=== PATIENT | female | born 1980 | race Caucasian/White ===

== ENCOUNTER 2018-10-11 13:18 | Inpatient (IN) | payer OTHER ==
[2018-10-11 15:34] VITALS: BMI 38.2
--- NOTE | 2018-10-11 15:58 | HP ---
CIWA Score - Admission Criteria [facility]ASAS Guidelines: Admission for Medically Managed Detox: Requires at least one of the followin. CIWA greater than 12 2. Seizures within the past 24 hours 3. Delirium tremens within the past 24 hours 4. Hallucinations within the past 24 hours 5. Acute intervention needed for co occurring medical disorder 6. Acute intervention needed for co occurring psychiatric disorder 7. Severe withdrawal that cannot be handled at a lower level of care (continued vomiting, continued diarrhea, abnormal vital signs) requiring intravenous medication and/or fluids 8. Admission ROS S - HPI Chief Complaint: rehab for K2 and crack. Was sent here for a [facility] program. Last rehab in 05/2018 at for same. 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 38 yo with h/o DM, obese Crack cocaine- uses occ, 7 days ago last use, was using $10/day, started age 25. K2- uses 4 blunts since age 17, last use this morning, blackouts from K2 Alcohol- occ Schizophrenic, bipolar with depression- suicide attempt- age 22, pt cuts herself Meds: Janumet:50/500 BID Glipizide- haldol Cogentin- depakote parozacin DUR/ISTOP- shows testosterone IM injections- on menses Urine- pos for BZO- pt denies use Allergies/Adverse Reactions: Allergies Allergy/AdvReac Type Severity Reaction Status Date / Time No Known Allergies Allergy Verified 10/11/18 15:50 Exam Limitations: No Limitations - Ebola screening Have you traveled outside of the country in the last 21 days: No Have you had contact with anyone from an Ebola affected area: No Have you been sick,other than usual withdrawal symptoms: No Do you have a fever: No - Review of Systems Constitutional: No Symptoms Reported EENT: reports: No Symptoms Reported Respiratory: reports: No Symptoms reported GI: reports: No Symptoms Reported : reports: No Symptoms Reported Musculoskeletal: reports: No Symptoms Reported Integumentary: reports: No Symptoms Reported Neuro: reports: No Symptoms reported Endocrine: reports: No Symptoms Reported Hematology: reports: No Symptoms Reported Psychiatric: reports: No Sypmtoms Reported Other Systems: Reviewed and Negative Patient History - Patient Medical History Hx Anemia: No Hx Asthma: No Hx Chronic Obstructive Pulmonary Disease (COPD): No Hx Cancer: No Hx Cardiac Disorders: No Hx Congestive Heart Failure: No Hx Hypertension: No Hx Hypercholesterolemia: No Hx Pacemaker: No HX Cerebrovascular Accident: No Hx Seizures: No Hx Diabetes: No Hx Gastrointestinal Disorders: No Hx Liver Disease: No Hx Genitourinary Disorders: No Hx Sexually Transmitted Disorders: No Hx Renal Disease (ESRD): No - Patient Surgical History Hx Orthopedic Surgery: Yes (ankle surgery) Hx Hysterectomy: No - PPD History Documented Results: Negative w/o proof - Reproductive History Patient is a Female of Child Bearing Age (11 -55 yrs old): No (on testosterone) Patient : No - Smoking Cessation Smoking history: Current every day smoker Have you smoked in the past 12 months: Yes Aproximately how many cigarettes per day: 6 Hx Chewing Tobacco Use: Yes Initiated information on smoking cessation: Yes 'Breaking Loose' booklet given: 10/11/18 - Substances Abused k2 Route: Smoking Frequency: Daily Amount used: 4 blunts Age of first use: 17 Date of Last Use: 10/11/18 Crack Route: Inhalation Frequency: 1-2 times per week Amount used: $10 Alcohol Frequency: 1-2 times per week Family Disease History - Family Disease History Family Disease History: Other: Father (lives [place]), Mother (lives in [place]) Admission Physical Exam BHS - Vital Signs Vital Signs: Vital Signs - 24 hr 10/11/18 15:30 Temperature 98.5 F Pulse Rate 110 H Respiratory 20 Rate Blood Pressure 118/85 - Physical General Appearance: Yes: Within Normal Limits HEENTM: Yes: Within Normal Limits Respiratory: Yes: Within Normal Limits Neck: Yes: Within Normal Limits Breast: Yes: Breast Exam Deferred Cardiology: Yes: Within Normal Limits Abdominal: Yes: Within Normal Limits Genitourinary: Yes: Within Normal Limits Back: Yes: Within Normal Limits Musculoskeletal: Yes: Within Normal Limits Extremities: Yes: Within Normal Limits Neurological: Yes: Within Normal Limits Integumentary: Yes: Within Normal Limits Lymphatic: Yes: Within Normal Limits BHS Breath Alcohol Content Breath Alcohol Content: 0 Urine Pregancy Test - Result Urine Test Results: Negative- NO Line Present Urine Drug Screen - Results Drug Screen Negative: No Urine Drug Screen Results: BZO-Benzodiazepines Inpatient Rehab Admission - Initial Determination Are CD services needed?: Yes Free of communicable disease: Yes Not in need of hospitalization: Yes - Rehab Admission Criteria Previous failed treatment: Yes Poor recovery environment: Yes Comorbidities: Yes Lacks judgement: No Patient is meeting Inpatient Rehab admission criteria:: Yes (pt was sent here from [facility]- K2/crack use)
[2018-10-11] MEDS ORDERED: LOPERAMIDE HCL 2 MG CAPSULE PO PRN (16:19)
[2018-10-11] MEDS ORDERED: IBUPROFEN 400 MG TABLET (FP) PO PRN (16:19)
[2018-10-11] MEDS ORDERED: guaiFENesin/D-METHORPHAN HB 10 ML UNIT-DOSE CUPS PO PRN (16:19)
[2018-10-11] MEDS ORDERED: MAGNESIUM HYDROX 2400MG/30ML ORAL SUSPENSION 30 ML CUP PO PRN (16:19)
[2018-10-11] MEDS ORDERED: MENTHOL/PHENOL 1 EACH UD MM PRN (16:19)
[2018-10-11] MEDS ORDERED: MAGNESIUM CITRATE 300 ML BOTTLE PO PRN (16:19)
[2018-10-11] MEDS ORDERED: ACETAMINOPHEN 325 MG TABLET (FP) PO PRN (16:19)
[2018-10-11] MEDS ORDERED: MAG HYDROX/AL HYDROX/SIMETH 30 ML UNIT-DOSE CUP PO PRN (16:19)
[2018-10-11] MEDS ORDERED: P-EPHED 60MG/TRIPROLIDI 2.5MG TABLET PO PRN (16:19)
[2018-10-11] MEDS ORDERED: TUBERCULIN PPD 5 TU/0.1ML VIAL ID ONE (18:59)
[2018-10-11] MEDS: DOCUSATE SODIUM 100 MG CAPSULE (FP) PO SCH (21:45)
[2018-10-11] MEDS: THIAMINE HCL 100 MG TABLET (FP) PO SCH (21:45)
[2018-10-11] MEDS: BENZTROPINE MESYLATE 1 MG TABLET (FP) PO SCH (21:45)
[2018-10-11] MEDS: PRAZOSIN HCL 1 MG CAPSULE PO SCH (21:47)
[2018-10-11] MEDS: HALOPERIDOL 5 MG TABLET (FP) PO SCH (21:47)
[2018-10-11] MEDS ORDERED: PRAZOSIN HCL 1 MG CAPSULE PO SCH (22:00)
[2018-10-11] MEDS ORDERED: MELATONIN 5 MG TABLETS PO PRN (22:00)
[2018-10-12] MEDS ORDERED: PT OWN MED DRAWER 7, Y5N ONE ×2 (00:50→05:55)
[2018-10-12 03:31] LABS: URINE APPEARANCE CLOUDY; URINE BILIRUBIN NEGATIVE (<2.0 mg/dL); URINE COLOR DKYELLOW; URINE GLUCOSE (UA) 3+ (NEGATIVE); URINE KETONE TRACE (NEGATIVE); URINE LEUK ESTERASE 2+ (NEGATIVE); URINE NITRITE NEGATIVE (NEGATIVE); URINE PROTEIN 2+ (NEGATIVE)
[2018-10-12 03:37] LABS: EPI CELLS MODERATE /HPF (FEW); URINE HYALINE CAST 32 /lpf; URINE MUCUS MANY
[2018-10-12] MEDS: metFORMIN HCL 500 MG TABLET (FP) PO SCH ×2 (06:46→17:11)
[2018-10-12] MEDS: glipiZIDE-XL 5 MG TAB.ER.24 PO SCH (06:47)
[2018-10-12] MEDS: NICOTINE POLACRILEX 4 MG GUM BC PRN ×2 (06:55→15:39)
[2018-10-12] MEDS: INSULIN SLIDING SCALE (NOVOLOG) 1 VIAL SQ SCH ×3 (07:58→17:12)
[2018-10-12] MEDS: PRENATAL VITAMINS W/ FOLIC ACID TABLET (FP) PO SCH (09:52)
[2018-10-12] MEDS: HALOPERIDOL 5 MG TABLET (FP) PO SCH ×2 (09:53→21:28)
[2018-10-12] MEDS: DOCUSATE SODIUM 100 MG CAPSULE (FP) PO SCH ×2 (09:53→21:27)
--- NOTE | 2018-10-12 11:51 | EKG ---
Test Reason : Blood Pressure : / mmHG Vent. Rate : 100 BPM Atrial Rate : 100 BPM P-R Int : 122 ms QRS Dur : 072 ms QT Int : 324 ms P-R-T Axes : 064 016 018 degrees QTc Int : 417 ms NORMAL SINUS RHYTHM LOW VOLTAGE QRS BORDERLINE ECG NO PREVIOUS ECGS AVAILABLE Confirmed by RAJIV VITAL, JANAK ([id number]) on 10/12/2018 11:50:41 AM Referred By: Confirmed By:JANAK VANCE MD
[2018-10-12 12:30] LABS: HEMATOCRIT 37.4 % (32.4-45.2); HEMOGLOBIN 12.8 GM/dL (10.7-15.3); MCH 29.6 pg (25.7-33.7); MCHC 34.2 g/dl (32.0-36.0); MEAN CELL VOLUME 86.7 fl (80-96); MEAN PLT VOLUME 9.2 fl (7.5-11.1); PLATELET COUNT 280 K/MM3 (134-434); RBC 4.31 M/mm3 (3.60-5.2); RDW 16.8 % (11.6-15.6)
[2018-10-12 12:51] LABS: ALBUMIN 3.5 g/dl (3.4-5.0); ALK PHOS 63 U/L (45-117); ANION GAP 6 MMOL/L (8-16); BILIRUBIN,TOTAL 0.2 mg/dL (0.2-1); BLOOD UREA NITROGEN 10 mg/dL (7-18); CALCIUM 8.8 mg/dL (8.5-10.1); CHLORIDE 107 mmol/L (98-107); CO2 26 mmol/L (21-32); CREATININE 0.7 mg/dL (0.55-1.3); GLUCOSE,RANDOM 146 mg/dL (74-106); POTASSIUM 4.7 mmol/L (3.5-5.1); SGOT/AST 6 U/L (15-37); SGPT/ALT 17 U/L (13-61); SODIUM 139 mmol/L (136-145); TOT PROT 7.1 g/dl (6.4-8.2)
--- NOTE | 2018-10-12 15:55 | PN ---
S Progress Note Note: NOTIFIED BY RN THAT PATIENT IS FEELING RESTLESS AND ANXIOUS. WILL NOT ORDER VISTARIL DUE TO POTENTIAL INTERACTION WITH HALDOL IN PROLONGING QTC. WILL ORDER ONE TIME DOSE OF CLONIDINE 0.1 MG. Vital Signs Temperature 97.7 F 10/12/18 06:59 Pulse Rate 94 H 10/12/18 09:39 Respiratory Rate 18 10/12/18 06:59 Blood Pressure 148/94 10/12/18 09:39 O2 Sat by Pulse Oximetry (%)
--- NOTE | 2018-10-12 16:06 | CONSULT ---
[facility] Psychiatric Consult - Data Date of interview: 10/12/18 Admission source: [facility] Identifying data: This is the first admission to [facility] for this 38 yo single childless female,resides in Supportive [place] residence,supportive by [facility]. Substance Abuse History: Reports k2 since 17 yo,4 blunts daily,crack since 8 yo, alcohol 1-2 times a week. Medical History: Obesity,NIIDM. 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 Physical/Sexual Abuse/Trauma History: Not willing to discuss. Mental Status Exam - Mental Status Exam Alert and Oriented to: Time, Place, Person Cognitive Function: Grossly Intact Patient Appearance: Unkempt Mood: Sad, Anxious Affect: Mood Congruent, Labile Patient Behavior: Cooperative Speech Pattern: Clear Voice Loudness: Normal Thought Process: Goal Oriented Thought Disorder: Being Controlled Hallucinations: Denies Suicidal Ideation: Denies Homicidal Ideation: Denies Insight/Judgement: Fair Sleep: Fair Appetite: Fair Muscle strength/Tone: Normal Gait/Station: Normal Psychiatric Findings - Problem List ([employer] 1, 2,3) (1) Cocaine use disorder Current Visit: Yes Status: Chronic (2) Diabetes Current Visit: Yes Status: Chronic (3) Hallucinogen use Current Visit: Yes Status: Chronic (4) Schizophrenia Current Visit: Yes Status: Chronic (5) Cannabis dependence Current Visit: Yes Status: Chronic - Initial Treatment Plan Initial Treatment Plan: Continue current medications as per plan.Will monitor progress.
[2018-10-12] MEDS ORDERED: cloNIDine HCL 0.1 MG TABLET PO ONE (17:15)
[2018-10-12] MEDS: THIAMINE HCL 100 MG TABLET (FP) PO SCH (21:27)
[2018-10-12] MEDS: BENZTROPINE MESYLATE 1 MG TABLET (FP) PO SCH (21:27)
[2018-10-12] MEDS: PRAZOSIN HCL 1 MG CAPSULE PO SCH (21:28)
[2018-10-12] MEDS: DIVALPROEX SODIUM 500 MG TABLET E.C. PO SCH (21:29)
[2018-10-13] MEDS: metFORMIN HCL 500 MG TABLET (FP) PO SCH ×2 (07:24→16:43)
[2018-10-13] MEDS: INSULIN SLIDING SCALE (NOVOLOG) 1 VIAL SQ SCH ×3 (07:25→16:44)
[2018-10-13] MEDS: glipiZIDE-XL 5 MG TAB.ER.24 PO SCH (07:25)
[2018-10-13] MEDS ORDERED: PT OWN MED DRAWER 7, Y5N ONE ×2 (07:26→16:43)
[2018-10-13] MEDS: HALOPERIDOL 5 MG TABLET (FP) PO SCH ×2 (09:15→21:26)
[2018-10-13] MEDS: DOCUSATE SODIUM 100 MG CAPSULE (FP) PO SCH ×2 (09:15→21:27)
[2018-10-13] MEDS: DIVALPROEX SODIUM 500 MG TABLET E.C. PO SCH ×2 (09:15→21:27)
[2018-10-13] MEDS: PRENATAL VITAMINS W/ FOLIC ACID TABLET (FP) PO SCH (09:15)
[2018-10-13] MEDS: NICOTINE POLACRILEX 4 MG GUM BC PRN (18:38)
--- NOTE | 2018-10-13 19:04 | PN ---
Psychiatric Progress Note Vital Signs: Vital Signs Period Temp Pulse Resp BP Sys/Figueroa Pulse Ox Last 24 Hr 97.9 F 80-89 16-18 107-124/73-82 Date of Session: 10/13/18 Chief Complaint:: " I was feeling anxious earlier ". HPI: Called by nurse, during daytime, to evaluate this patient for complaint of anxiety. Ms Martinez was admitted to [facility] on 10/12/18. This is a direct admission from [facility]. ROS: Patient is ambulatory, alert and fully oriented. Offers no specific complaints of anxiety. Does not appear to be in any distress at time of this examination. Current Medications: Active Medications Generic Name Dose Route Start Last Admin Trade Name Freq PRN Reason Stop Dose Admin Acetaminophen 650 mg 10/11/18 16:19 Tylenol - PO Q4H PRN FEVER Al Hydroxide/Mg Hydroxide 30 ml 10/11/18 16:19 Mylanta Oral Suspension - PO Q6H PRN DYSPEPSIA Benztropine Mesylate 1 mg 10/11/18 22:00 10/12/18 21:27 Cogentin - PO 1 mg HS BRITTANIE Administration Divalproex Sodium 500 mg 10/12/18 22:00 10/13/18 09:15 Depakote - PO 500 mg BID BRITTANIE Administration Docusate Sodium 100 mg 10/11/18 22:00 10/13/18 09:15 Colace - PO 100 mg BID BRITTANIE Administration Eucalyptus/Menthol/Phenol/Sorbitol 1 each 10/11/18 16:19 Cepastat Lozenge - MM Q4H PRN SORE THROAT Glipizide 5 mg 10/12/18 07:00 10/13/18 07:25 Glucotrol Xl - PO 5 mg ACBK BRITTANIE Administration Guaifenesin 10 ml 10/11/18 16:19 Robitussin Dm - PO Q6H PRN COUGH Haloperidol 10 mg 10/12/18 10:00 10/13/18 09:15 Haldol - PO 10 mg DAILY BRITTANIE Administration Haloperidol 20 mg 10/11/18 22:00 10/12/18 21:28 Haldol - PO 20 mg HS BRITTANIE Administration Ibuprofen 400 mg 10/11/18 16:19 Motrin - PO Q6H PRN Pain level 4-6 Insulin Aspart 1 vial 10/12/18 07:00 10/13/18 16:44 Novolog Vial Sliding Scale - SQ Not Given TIDAC [facility] Protocol Loperamide HCl 4 mg 10/11/18 16:19 Imodium - PO Q6H PRN DIARRHEA Magnesium Citrate 300 ml 10/11/18 16:19 Citroma - PO Q48H PRN CONSTIPATION Magnesium Hydroxide 30 ml 10/11/18 16:19 Milk Of Magnesia - PO DAILY PRN CONSTIPATION Melatonin 5 mg 10/11/18 22:00 Melatonin PO HS PRN INSOMNIA Metformin HCl 1,000 mg 10/12/18 07:00 10/13/18 16:43 Glucophage - PO 1,000 mg BID@0700,1630 BRITTANIE Administration Nicotine Polacrilex 4 mg 10/11/18 16:19 10/13/18 18:38 Nicorette Gum - BC 4 mg Q2H PRN Administration NICOTINE REPLACEMENT RX Prazosin HCl 2 mg 10/11/18 22:00 10/12/18 21:28 Minipress - PO 2 mg HS BRITTANIE Administration Multivit/Folic Acid/Iron 1 tab 10/12/18 10:00 10/13/18 09:15 Vitamins (Sjr) - PO 1 tab DAILY BRITTANIE Administration Pseudoephedrine/Triprolidine 1 combo 10/11/18 16:19 Actifed - PO TID PRN NASAL CONGESTION Thiamine HCl 100 mg 10/11/18 22:00 10/12/18 21:27 Vitamin B1 - PO 100 mg HS BRITTANIE Administration Medication(s) Change(s): Medications are reviewed. Noted current regimen consisting of haloperidol 30 mg/day + cogentin + depakote. Concordant with pharmacy claims of 10/08/18 at [facility]. Added to the regimen : hydroxyzine 25 mg po q 6 hrs prn. Side effects/benefits of this regimen are discussed with the patient. Ms Martinez is made aware of the risk of EPS ( extrapyramidal symptoms), dystonias, dyskinesias, akathisia, neuroleptic malignant syndrome, cardiovascular adverse events, anticholinergic manifestations (blurred vision, constipation, urinary hesitancy) ; liver dysfunction, blood dyscrasias from use of depakote were also mentioned to patient. Ms Martinez endorses a history of good tolerability + good response to this regimen in the past. No report of adverse effects. Patient has verbalized her agreement with this plan of care. Consent (verbal) granted to . Current Side Effect: No Lab tests ordered: No Lab tests reviewed: Yes (valproic acid level = 31.5 on 10/13/17 ; unremarkable LFTS. CBC is normal.) Provider note:: Chart reviewed. Dr Mcghee's consult note (10/13/18) : read and appreciated. Patient is interviewed. She indicates that she was doing fine until she started experiencing some feelings of jitterines (no longer endorsed in this session) during daytime. Patient is reassured. Hydroxyzine discussed. Patient responded positively to teaching. Unit psychiatrist will follow hospital course. Unremarkable mental status. Total face to face time:: 25 Mental Status Exam - Mental Status Exam Alert and Oriented to: Time, Place, Person Cognitive Function: Good Patient Appearance: Well Groomed Mood: Apprehensive, Hopeful Affect: Appropriate, Normal Range Patient Behavior: Appropriate, Cooperative Speech Pattern: Clear, Appropriate Voice Loudness: Normal Thought Process: Goal Oriented Thought Disorder: Not Present Hallucinations: Denies Suicidal Ideation: Denies Homicidal Ideation: Denies Insight/Judgement: Fair Sleep: Fair Appetite: Good Gait/Station: Normal Psychiatric Treatment Plan - Problem List (1) Schizophrenia Current Visit: Yes Comment: . (2) Cannabis dependence Current Visit: Yes Comment: . (3) Cocaine use disorder Current Visit: Yes Comment: . (4) Substance induced mood disorder Current Visit: Yes Comment: .
[2018-10-13] MEDS ORDERED: hydrOXYzine PAMOATE 25 MG CAPSULE (FP) PO PRN (19:05)
[2018-10-13] MEDS: BENZTROPINE MESYLATE 1 MG TABLET (FP) PO SCH (21:27)
[2018-10-13] MEDS: hydrOXYzine PAMOATE 25 MG CAPSULE (FP) PO PRN (21:27)
[2018-10-13] MEDS: THIAMINE HCL 100 MG TABLET (FP) PO SCH (21:27)
[2018-10-13] MEDS: PRAZOSIN HCL 1 MG CAPSULE PO SCH (21:33)
[2018-10-14] MEDS ORDERED: PT OWN MED DRAWER 7, Y5N ONE ×2 (03:24→08:15)
[2018-10-14] MEDS: glipiZIDE-XL 5 MG TAB.ER.24 PO SCH (06:26)
[2018-10-14] MEDS: hydrOXYzine PAMOATE 25 MG CAPSULE (FP) PO PRN ×3 (06:26→21:11)
[2018-10-14] MEDS: metFORMIN HCL 500 MG TABLET (FP) PO SCH ×2 (06:26→16:48)
[2018-10-14] MEDS: INSULIN SLIDING SCALE (NOVOLOG) 1 VIAL SQ SCH ×3 (06:33→16:51)
[2018-10-14] MEDS: DOCUSATE SODIUM 100 MG CAPSULE (FP) PO SCH ×2 (09:41→21:11)
[2018-10-14] MEDS: HALOPERIDOL 5 MG TABLET (FP) PO SCH ×2 (09:41→21:10)
[2018-10-14] MEDS: DIVALPROEX SODIUM 500 MG TABLET E.C. PO SCH ×2 (09:41→21:10)
[2018-10-14] MEDS: PRENATAL VITAMINS W/ FOLIC ACID TABLET (FP) PO SCH (09:41)
[2018-10-14] MEDS: NICOTINE POLACRILEX 4 MG GUM BC PRN (17:32)
[2018-10-14] MEDS: BENZTROPINE MESYLATE 1 MG TABLET (FP) PO SCH (21:11)
[2018-10-14] MEDS: THIAMINE HCL 100 MG TABLET (FP) PO SCH (21:11)
[2018-10-14] MEDS: PRAZOSIN HCL 1 MG CAPSULE PO SCH (21:28)
[2018-10-15] MEDS ORDERED: hydrOXYzine PAMOATE 50 MG CAPSULE (FP) PO ONE (00:45)
[2018-10-15] MEDS ORDERED: PT OWN MED DRAWER 7, Y5N ONE (03:18)
[2018-10-15] MEDS: metFORMIN HCL 500 MG TABLET (FP) PO SCH ×2 (06:56→16:49)
[2018-10-15] MEDS: INSULIN SLIDING SCALE (NOVOLOG) 1 VIAL SQ SCH ×3 (06:56→16:52)
[2018-10-15] MEDS: glipiZIDE-XL 5 MG TAB.ER.24 PO SCH (06:56)
[2018-10-15] MEDS: hydrOXYzine PAMOATE 25 MG CAPSULE (FP) PO PRN ×2 (06:57→21:13)
[2018-10-15] MEDS: NICOTINE POLACRILEX 4 MG GUM BC PRN ×4 (06:58→19:00)
[2018-10-15] MEDS: DIVALPROEX SODIUM 500 MG TABLET E.C. PO SCH (09:44)
[2018-10-15] MEDS: PRENATAL VITAMINS W/ FOLIC ACID TABLET (FP) PO SCH (09:44)
[2018-10-15] MEDS: DOCUSATE SODIUM 100 MG CAPSULE (FP) PO SCH ×2 (09:44→21:12)
[2018-10-15] MEDS: HALOPERIDOL 5 MG TABLET (FP) PO SCH ×2 (09:45→22:05)
--- NOTE | 2018-10-15 11:47 | PN ---
Psychiatric Progress Note Vital Signs: Vital Signs Period Temp Pulse Resp BP Sys/Figueroa Pulse Ox Last 24 Hr 97.6 F-97.9 F 84-88 18-20 115-135/81-82 Date of Session: 10/15/18 Chief Complaint:: Thee depressed,my mood is mostly down. HPI: Patient addressed Cocaine,K2 ,Cannabis dependence comorbid with Schizophrenia. ROS: Obesity,DM. Current Medications: Active Medications Generic Name Dose Route Start Last Admin Trade Name Freq PRN Reason Stop Dose Admin Acetaminophen 650 mg 10/11/18 16:19 Tylenol - PO Q4H PRN FEVER Al Hydroxide/Mg Hydroxide 30 ml 10/11/18 16:19 Mylanta Oral Suspension - PO Q6H PRN DYSPEPSIA Benztropine Mesylate 1 mg 10/11/18 22:00 10/14/18 21:11 Cogentin - PO 1 mg HS BRITTANIE Administration Divalproex Sodium 750 mg 10/15/18 22:00 Depakote - PO HS BRITTANIE Divalproex Sodium 500 mg 10/16/18 07:00 Depakote - PO AM BRITTANIE Docusate Sodium 100 mg 10/11/18 22:00 10/15/18 09:44 Colace - PO 100 mg BID BRITTANIE Administration Duloxetine HCl 20 mg 10/15/18 11:45 Cymbalta - PO DAILY BRITTANIE Eucalyptus/Menthol/Phenol/Sorbitol 1 each 10/11/18 16:19 Cepastat Lozenge - MM Q4H PRN SORE THROAT Glipizide 5 mg 10/12/18 07:00 10/15/18 06:56 Glucotrol Xl - PO 5 mg ACBK BRITTANIE Administration Guaifenesin 10 ml 10/11/18 16:19 Robitussin Dm - PO Q6H PRN COUGH Haloperidol 10 mg 10/12/18 10:00 10/15/18 09:45 Haldol - PO 10 mg DAILY BRITTANIE Administration Haloperidol 20 mg 10/11/18 22:00 10/14/18 21:10 Haldol - PO 20 mg HS BRITTANIE Administration Hydroxyzine Pamoate 25 mg 10/13/18 19:42 10/15/18 06:57 Vistaril - PO 25 mg Q6H PRN Administration ANXIETY Ibuprofen 400 mg 10/11/18 16:19 Motrin - PO Q6H PRN Pain level 4-6 Insulin Aspart 1 vial 10/12/18 07:00 10/15/18 06:56 Novolog Vial Sliding Scale - SQ Not Given TIDAC [facility] Protocol Loperamide HCl 4 mg 10/11/18 16:19 Imodium - PO Q6H PRN DIARRHEA Magnesium Citrate 300 ml 10/11/18 16:19 Citroma - PO Q48H PRN CONSTIPATION Magnesium Hydroxide 30 ml 10/11/18 16:19 Milk Of Magnesia - PO DAILY PRN CONSTIPATION Melatonin 5 mg 10/11/18 22:00 Melatonin PO HS PRN INSOMNIA Metformin HCl 1,000 mg 10/12/18 07:00 10/15/18 06:56 Glucophage - PO 1,000 mg BID@0700,1630 BRITTANIE Administration Nicotine Polacrilex 4 mg 10/11/18 16:19 10/15/18 10:58 Nicorette Gum - BC 4 mg Q2H PRN Administration NICOTINE REPLACEMENT RX Prazosin HCl 2 mg 10/11/18 22:00 10/14/18 21:28 Minipress - PO 2 mg HS BRITTANIE Administration Multivit/Folic Acid/Iron 1 tab 10/12/18 10:00 10/15/18 09:44 Vitamins (Sjr) - PO 1 tab DAILY BRITTANIE Administration Pseudoephedrine/Triprolidine 1 combo 10/11/18 16:19 Actifed - PO TID PRN NASAL CONGESTION Thiamine HCl 100 mg 10/11/18 22:00 10/14/18 21:11 Vitamin B1 - PO 100 mg HS BRITTANIE Administration Current Side Effect: No Lab tests ordered: No Lab tests reviewed: Yes Provider note:: Chart was revuewed,patient was evaluated,medications has been discussed with the patient .Patient addressed ongoing depressed mood,anxiety, negative thinking.Reports that she was on Depakote 1000 mg po daily with good result.Properties of Depakote ,Cymbalta hurst been discussed with the patient including side effects,benefits and dose adjustement.Patient agrees to start Cymbalta 20 mg po daily.Depakote 500 mg po bid will be adjusted to 500 mg po am and 750 mg po hs. Supportive therapy provided. Mental Status Exam - Mental Status Exam Alert and Oriented to: Time, Place, Person Cognitive Function: Grossly Intact Patient Appearance: Well Groomed Mood: Depressed, Sad Affect: Labile Patient Behavior: Cooperative Speech Pattern: Clear Voice Loudness: Normal Thought Process: Goal Oriented Thought Disorder: Being Controlled Hallucinations: Denies Suicidal Ideation: Denies Homicidal Ideation: Denies Insight/Judgement: Fair Sleep: Fair Appetite: Good Muscle strength/Tone: Normal Gait/Station: Normal Psychiatric Treatment Plan - Problem List (1) Cocaine use disorder Current Visit: Yes (2) Diabetes Current Visit: Yes (3) Hallucinogen use Current Visit: Yes (4) Schizophrenia Current Visit: Yes (5) Cannabis dependence Current Visit: Yes
[2018-10-15] MEDS ORDERED: COLLOIDAL OATMEAL 1 BAR EACH TP PRN (12:14)
[2018-10-15] MEDS: DULoxetine HCL 20 MG CAPSULE.DR (FP) PO SCH (12:28)
[2018-10-15] MEDS: BENZTROPINE MESYLATE 1 MG TABLET (FP) PO SCH (21:12)
[2018-10-15] MEDS: THIAMINE HCL 100 MG TABLET (FP) PO SCH (21:12)
[2018-10-15] MEDS: PRAZOSIN HCL 1 MG CAPSULE PO SCH (21:13)
[2018-10-15] MEDS: DIVALPROEX 500 MG, DIVALPROEX 250 MG PO SCH (21:14)
[2018-10-15] MEDS ORDERED: DIVALPROEX SODIUM 500 MG TABLET E.C. ONE (21:14)
[2018-10-15] MEDS ORDERED: DIVALPROEX SODIUM 250 MG TABLET E.C. ONE (21:14)
[2018-10-15] MEDS ORDERED: DIVALPROEX SODIUM 250 MG TABLET E.C. PO SCH (22:00)
[2018-10-16] MEDS ORDERED: PT OWN MED DRAWER 7, Y5N ONE ×2 (05:53→10:21)
[2018-10-16] MEDS: metFORMIN HCL 500 MG TABLET (FP) PO SCH ×2 (06:20→16:47)
[2018-10-16] MEDS: glipiZIDE-XL 5 MG TAB.ER.24 PO SCH (06:20)
[2018-10-16] MEDS: DIVALPROEX SODIUM 500 MG TABLET E.C. PO SCH (06:20)
[2018-10-16] MEDS: hydrOXYzine PAMOATE 25 MG CAPSULE (FP) PO PRN ×3 (06:21→21:21)
[2018-10-16] MEDS: INSULIN SLIDING SCALE (NOVOLOG) 1 VIAL SQ SCH ×3 (06:27→16:49)
[2018-10-16] MEDS: DOCUSATE SODIUM 100 MG CAPSULE (FP) PO SCH ×2 (09:36→21:21)
[2018-10-16] MEDS: DULoxetine HCL 20 MG CAPSULE.DR (FP) PO SCH (09:36)
[2018-10-16] MEDS: PRENATAL VITAMINS W/ FOLIC ACID TABLET (FP) PO SCH (09:37)
[2018-10-16] MEDS: HALOPERIDOL 5 MG TABLET (FP) PO SCH ×2 (10:13→21:21)
[2018-10-16] MEDS: NICOTINE POLACRILEX 4 MG GUM BC PRN ×3 (12:55→19:36)
[2018-10-16] MEDS ORDERED: DIVALPROEX SODIUM 250 MG TABLET E.C. ONE (19:27)
[2018-10-16] MEDS ORDERED: DIVALPROEX SODIUM 500 MG TABLET E.C. ONE (19:27)
[2018-10-16] MEDS: DIVALPROEX 500 MG, DIVALPROEX 250 MG PO SCH (21:21)
[2018-10-16] MEDS: BENZTROPINE MESYLATE 1 MG TABLET (FP) PO SCH (21:21)
[2018-10-16] MEDS: THIAMINE HCL 100 MG TABLET (FP) PO SCH (21:21)
[2018-10-16] MEDS: PRAZOSIN HCL 1 MG CAPSULE PO SCH (21:22)
[2018-10-17] MEDS ORDERED: PT OWN MED DRAWER 7, Y5N ONE (03:29)
[2018-10-17] MEDS: glipiZIDE-XL 5 MG TAB.ER.24 PO SCH (06:53)
[2018-10-17] MEDS: metFORMIN HCL 500 MG TABLET (FP) PO SCH ×2 (06:53→16:44)
[2018-10-17] MEDS: hydrOXYzine PAMOATE 25 MG CAPSULE (FP) PO PRN ×3 (06:53→21:15)
[2018-10-17] MEDS: DIVALPROEX SODIUM 500 MG TABLET E.C. PO SCH (06:53)
[2018-10-17] MEDS: INSULIN SLIDING SCALE (NOVOLOG) 1 VIAL SQ SCH ×2 (06:54→16:45)
[2018-10-17] MEDS: DOCUSATE SODIUM 100 MG CAPSULE (FP) PO SCH ×2 (09:34→21:12)
[2018-10-17] MEDS: HALOPERIDOL 5 MG TABLET (FP) PO SCH ×2 (09:34→21:12)
[2018-10-17] MEDS: PRENATAL VITAMINS W/ FOLIC ACID TABLET (FP) PO SCH (09:34)
[2018-10-17] MEDS: DULoxetine HCL 20 MG CAPSULE.DR (FP) PO SCH (09:34)
[2018-10-17] MEDS: NICOTINE POLACRILEX 4 MG GUM BC PRN ×3 (10:09→18:10)
[2018-10-17] MEDS ORDERED: DIVALPROEX SODIUM 250 MG TABLET E.C. ONE (19:26)
[2018-10-17] MEDS ORDERED: DIVALPROEX SODIUM 500 MG TABLET E.C. ONE (19:26)
[2018-10-17] MEDS: BENZTROPINE MESYLATE 1 MG TABLET (FP) PO SCH (21:11)
[2018-10-17] MEDS: THIAMINE HCL 100 MG TABLET (FP) PO SCH (21:11)
[2018-10-17] MEDS: DIVALPROEX 500 MG, DIVALPROEX 250 MG PO SCH (21:12)
[2018-10-17] MEDS: PRAZOSIN HCL 1 MG CAPSULE PO SCH (21:14)
[2018-10-18] MEDS ORDERED: PT OWN MED DRAWER 7, Y5N ONE (03:25)
[2018-10-18] MEDS: hydrOXYzine PAMOATE 25 MG CAPSULE (FP) PO PRN ×2 (06:45→16:57)
[2018-10-18] MEDS: DIVALPROEX SODIUM 500 MG TABLET E.C. PO SCH (06:45)
[2018-10-18] MEDS: metFORMIN HCL 500 MG TABLET (FP) PO SCH ×2 (06:45→16:57)
[2018-10-18] MEDS: glipiZIDE-XL 5 MG TAB.ER.24 PO SCH (06:46)
[2018-10-18] MEDS: NICOTINE POLACRILEX 4 MG GUM BC PRN ×2 (06:46→19:58)
[2018-10-18] MEDS: INSULIN SLIDING SCALE (NOVOLOG) 1 VIAL SQ SCH ×2 (06:57→17:00)
[2018-10-18] MEDS: DOCUSATE SODIUM 100 MG CAPSULE (FP) PO SCH ×2 (09:36→21:31)
[2018-10-18] MEDS: HALOPERIDOL 5 MG TABLET (FP) PO SCH ×2 (09:36→21:31)
[2018-10-18] MEDS: DULoxetine HCL 20 MG CAPSULE.DR (FP) PO SCH (09:36)
[2018-10-18] MEDS: PRENATAL VITAMINS W/ FOLIC ACID TABLET (FP) PO SCH (09:37)
[2018-10-18] MEDS ORDERED: DIVALPROEX SODIUM 250 MG TABLET E.C. ONE (19:15)
[2018-10-18] MEDS ORDERED: DIVALPROEX SODIUM 500 MG TABLET E.C. ONE (19:15)
[2018-10-18] MEDS: PRAZOSIN HCL 1 MG CAPSULE PO SCH (21:31)
[2018-10-18] MEDS: DIVALPROEX 500 MG, DIVALPROEX 250 MG PO SCH (21:31)
[2018-10-18] MEDS: THIAMINE HCL 100 MG TABLET (FP) PO SCH (21:31)
[2018-10-18] MEDS: BENZTROPINE MESYLATE 1 MG TABLET (FP) PO SCH (21:31)
[2018-10-19] MEDS ORDERED: PT OWN MED DRAWER 7, Y5N ONE (04:15)
[2018-10-19] MEDS: DIVALPROEX SODIUM 500 MG TABLET E.C. PO SCH (07:17)
[2018-10-19] MEDS: metFORMIN HCL 500 MG TABLET (FP) PO SCH ×2 (07:17→16:29)
[2018-10-19] MEDS: hydrOXYzine PAMOATE 25 MG CAPSULE (FP) PO PRN ×3 (07:18→21:34)
[2018-10-19] MEDS: glipiZIDE-XL 5 MG TAB.ER.24 PO SCH (07:18)
[2018-10-19] MEDS: NICOTINE POLACRILEX 4 MG GUM BC PRN ×2 (07:19→13:56)
[2018-10-19] MEDS: INSULIN SLIDING SCALE (NOVOLOG) 1 VIAL SQ SCH ×2 (07:19→16:29)
[2018-10-19] MEDS: HALOPERIDOL 5 MG TABLET (FP) PO SCH ×2 (09:50→21:31)
[2018-10-19] MEDS: DOCUSATE SODIUM 100 MG CAPSULE (FP) PO SCH ×2 (09:50→21:30)
[2018-10-19] MEDS: DULoxetine HCL 20 MG CAPSULE.DR (FP) PO SCH (09:50)
[2018-10-19] MEDS: PRENATAL VITAMINS W/ FOLIC ACID TABLET (FP) PO SCH (09:50)
[2018-10-19] MEDS ORDERED: DIVALPROEX SODIUM 250 MG TABLET E.C. ONE (18:37)
[2018-10-19] MEDS ORDERED: DIVALPROEX SODIUM 500 MG TABLET E.C. ONE (18:37)
[2018-10-19] MEDS: DIVALPROEX 500 MG, DIVALPROEX 250 MG PO SCH (21:30)
[2018-10-19] MEDS: THIAMINE HCL 100 MG TABLET (FP) PO SCH (21:30)
[2018-10-19] MEDS: BENZTROPINE MESYLATE 1 MG TABLET (FP) PO SCH (21:31)
[2018-10-19] MEDS: PRAZOSIN HCL 1 MG CAPSULE PO SCH (21:31)
[2018-10-20] MEDS ORDERED: PT OWN MED DRAWER 7, Y5N ONE ×2 (05:59→07:45)
[2018-10-20] MEDS: metFORMIN HCL 500 MG TABLET (FP) PO SCH ×2 (07:09→17:07)
[2018-10-20] MEDS: glipiZIDE-XL 5 MG TAB.ER.24 PO SCH (07:09)
[2018-10-20] MEDS: DIVALPROEX SODIUM 500 MG TABLET E.C. PO SCH (07:10)
[2018-10-20] MEDS: hydrOXYzine PAMOATE 25 MG CAPSULE (FP) PO PRN ×2 (07:11→21:39)
[2018-10-20] MEDS: INSULIN SLIDING SCALE (NOVOLOG) 1 VIAL SQ SCH ×2 (07:44→17:08)
[2018-10-20] MEDS: DULoxetine HCL 20 MG CAPSULE.DR (FP) PO SCH (09:44)
[2018-10-20] MEDS: PRENATAL VITAMINS W/ FOLIC ACID TABLET (FP) PO SCH (09:44)
[2018-10-20] MEDS: DOCUSATE SODIUM 100 MG CAPSULE (FP) PO SCH ×2 (09:44→21:36)
[2018-10-20] MEDS: HALOPERIDOL 5 MG TABLET (FP) PO SCH ×2 (09:45→21:36)
[2018-10-20] MEDS ORDERED: DIVALPROEX SODIUM 500 MG TABLET E.C. ONE (19:41)
[2018-10-20] MEDS ORDERED: DIVALPROEX SODIUM 250 MG TABLET E.C. ONE (19:41)
[2018-10-20] MEDS: THIAMINE HCL 100 MG TABLET (FP) PO SCH (21:36)
[2018-10-20] MEDS: BENZTROPINE MESYLATE 1 MG TABLET (FP) PO SCH (21:36)
[2018-10-20] MEDS: DIVALPROEX 500 MG, DIVALPROEX 250 MG PO SCH (21:36)
[2018-10-20] MEDS: PRAZOSIN HCL 1 MG CAPSULE PO SCH (21:36)
[2018-10-21] MEDS ORDERED: PT OWN MED DRAWER 7, Y5N ONE ×2 (06:02→07:30)
[2018-10-21] MEDS: DIVALPROEX SODIUM 500 MG TABLET E.C. PO SCH (07:09)
[2018-10-21] MEDS: metFORMIN HCL 500 MG TABLET (FP) PO SCH ×2 (07:09→16:58)
[2018-10-21] MEDS: glipiZIDE-XL 5 MG TAB.ER.24 PO SCH (07:10)
[2018-10-21] MEDS: INSULIN SLIDING SCALE (NOVOLOG) 1 VIAL SQ SCH ×2 (08:25→16:59)
[2018-10-21] MEDS: DOCUSATE SODIUM 100 MG CAPSULE (FP) PO SCH ×2 (09:31→21:52)
[2018-10-21] MEDS: PRENATAL VITAMINS W/ FOLIC ACID TABLET (FP) PO SCH (09:31)
[2018-10-21] MEDS: HALOPERIDOL 5 MG TABLET (FP) PO SCH ×2 (09:31→21:52)
[2018-10-21] MEDS: DULoxetine HCL 20 MG CAPSULE.DR (FP) PO SCH (09:31)
[2018-10-21] MEDS: NICOTINE POLACRILEX 4 MG GUM BC PRN ×2 (12:23→17:01)
[2018-10-21] MEDS ORDERED: DIVALPROEX SODIUM 500 MG TABLET E.C. ONE (19:44)
[2018-10-21] MEDS ORDERED: DIVALPROEX SODIUM 250 MG TABLET E.C. ONE (19:44)
[2018-10-21] MEDS: PRAZOSIN HCL 1 MG CAPSULE PO SCH (21:52)
[2018-10-21] MEDS: THIAMINE HCL 100 MG TABLET (FP) PO SCH (21:52)
[2018-10-21] MEDS: DIVALPROEX 500 MG, DIVALPROEX 250 MG PO SCH (21:52)
[2018-10-21] MEDS: BENZTROPINE MESYLATE 1 MG TABLET (FP) PO SCH (21:52)
[2018-10-21] MEDS: hydrOXYzine PAMOATE 25 MG CAPSULE (FP) PO PRN (21:52)
[2018-10-22] MEDS ORDERED: PT OWN MED DRAWER 7, Y5N ONE ×2 (05:45→08:46)
[2018-10-22] MEDS: metFORMIN HCL 500 MG TABLET (FP) PO SCH ×2 (06:54→17:05)
[2018-10-22] MEDS: glipiZIDE-XL 5 MG TAB.ER.24 PO SCH (06:54)
[2018-10-22] MEDS: DIVALPROEX SODIUM 500 MG TABLET E.C. PO SCH (06:54)
[2018-10-22] MEDS: INSULIN SLIDING SCALE (NOVOLOG) 1 VIAL SQ SCH ×2 (06:56→17:06)
[2018-10-22] MEDS: HALOPERIDOL 5 MG TABLET (FP) PO SCH ×2 (09:41→21:13)
[2018-10-22] MEDS: DULoxetine HCL 20 MG CAPSULE.DR (FP) PO SCH (09:42)
[2018-10-22] MEDS: PRENATAL VITAMINS W/ FOLIC ACID TABLET (FP) PO SCH (09:42)
[2018-10-22] MEDS: DOCUSATE SODIUM 100 MG CAPSULE (FP) PO SCH ×2 (09:42→21:13)
[2018-10-22] MEDS: NICOTINE POLACRILEX 4 MG GUM BC PRN (12:07)
[2018-10-22] MEDS ORDERED: DIVALPROEX SODIUM 250 MG TABLET E.C. ONE (19:20)
[2018-10-22] MEDS ORDERED: DIVALPROEX SODIUM 500 MG TABLET E.C. ONE (19:20)
[2018-10-22] MEDS: THIAMINE HCL 100 MG TABLET (FP) PO SCH (21:12)
[2018-10-22] MEDS: DIVALPROEX 500 MG, DIVALPROEX 250 MG PO SCH (21:13)
[2018-10-22] MEDS: hydrOXYzine PAMOATE 25 MG CAPSULE (FP) PO PRN (21:13)
[2018-10-22] MEDS: BENZTROPINE MESYLATE 1 MG TABLET (FP) PO SCH (21:13)
[2018-10-22] MEDS: PRAZOSIN HCL 1 MG CAPSULE PO SCH (21:15)
[2018-10-23] MEDS ORDERED: PT OWN MED DRAWER 7, Y5N ONE (03:12)
[2018-10-23] MEDS: glipiZIDE-XL 5 MG TAB.ER.24 PO SCH (06:55)
[2018-10-23] MEDS: hydrOXYzine PAMOATE 25 MG CAPSULE (FP) PO PRN ×2 (06:55→21:27)
[2018-10-23] MEDS: metFORMIN HCL 500 MG TABLET (FP) PO SCH ×2 (06:55→16:53)
[2018-10-23] MEDS: DIVALPROEX SODIUM 500 MG TABLET E.C. PO SCH (06:55)
[2018-10-23] MEDS: NICOTINE POLACRILEX 4 MG GUM BC PRN (06:56)
[2018-10-23] MEDS: INSULIN SLIDING SCALE (NOVOLOG) 1 VIAL SQ SCH ×2 (07:01→16:54)
[2018-10-23] MEDS: DOCUSATE SODIUM 100 MG CAPSULE (FP) PO SCH ×2 (10:30→21:24)
[2018-10-23] MEDS: HALOPERIDOL 5 MG TABLET (FP) PO SCH ×2 (10:30→21:25)
[2018-10-23] MEDS: DULoxetine HCL 20 MG CAPSULE.DR (FP) PO SCH (10:30)
[2018-10-23] MEDS: PRENATAL VITAMINS W/ FOLIC ACID TABLET (FP) PO SCH (10:30)
[2018-10-23] MEDS ORDERED: DIVALPROEX SODIUM 500 MG TABLET E.C. ONE (20:09)
[2018-10-23] MEDS ORDERED: DIVALPROEX SODIUM 250 MG TABLET E.C. ONE (20:09)
[2018-10-23] MEDS: PRAZOSIN HCL 1 MG CAPSULE PO SCH (21:25)
[2018-10-23] MEDS: BENZTROPINE MESYLATE 1 MG TABLET (FP) PO SCH (21:25)
[2018-10-23] MEDS: DIVALPROEX 500 MG, DIVALPROEX 250 MG PO SCH (21:25)
[2018-10-23] MEDS: THIAMINE HCL 100 MG TABLET (FP) PO SCH (21:25)
[2018-10-24] MEDS: metFORMIN HCL 500 MG TABLET (FP) PO SCH ×2 (07:21→17:05)
[2018-10-24] MEDS: hydrOXYzine PAMOATE 25 MG CAPSULE (FP) PO PRN ×2 (07:21→21:27)
[2018-10-24] MEDS: glipiZIDE-XL 5 MG TAB.ER.24 PO SCH (07:21)
[2018-10-24] MEDS: DIVALPROEX SODIUM 500 MG TABLET E.C. PO SCH (07:21)
[2018-10-24] MEDS: INSULIN SLIDING SCALE (NOVOLOG) 1 VIAL SQ SCH ×2 (07:22→17:06)
[2018-10-24] MEDS: NICOTINE POLACRILEX 4 MG GUM BC PRN ×2 (07:22→12:18)
[2018-10-24] MEDS: DOCUSATE SODIUM 100 MG CAPSULE (FP) PO SCH ×2 (09:41→21:27)
[2018-10-24] MEDS: DULoxetine HCL 20 MG CAPSULE.DR (FP) PO SCH (09:41)
[2018-10-24] MEDS: HALOPERIDOL 5 MG TABLET (FP) PO SCH ×2 (09:41→21:27)
[2018-10-24] MEDS: PRENATAL VITAMINS W/ FOLIC ACID TABLET (FP) PO SCH (09:41)
[2018-10-24] MEDS ORDERED: DIVALPROEX SODIUM 250 MG TABLET E.C. ONE (19:15)
[2018-10-24] MEDS ORDERED: DIVALPROEX SODIUM 500 MG TABLET E.C. ONE (19:15)
[2018-10-24] MEDS: THIAMINE HCL 100 MG TABLET (FP) PO SCH (21:26)
[2018-10-24] MEDS: BENZTROPINE MESYLATE 1 MG TABLET (FP) PO SCH (21:27)
[2018-10-24] MEDS: DIVALPROEX 500 MG, DIVALPROEX 250 MG PO SCH (21:27)
[2018-10-24] MEDS: PRAZOSIN HCL 1 MG CAPSULE PO SCH (21:29)
[2018-10-25] MEDS: metFORMIN HCL 500 MG TABLET (FP) PO SCH (07:00)
[2018-10-25] MEDS: DIVALPROEX SODIUM 500 MG TABLET E.C. PO SCH (07:01)
[2018-10-25] MEDS: glipiZIDE-XL 5 MG TAB.ER.24 PO SCH (07:01)
[2018-10-25] MEDS: hydrOXYzine PAMOATE 25 MG CAPSULE (FP) PO PRN (07:01)
[2018-10-25] MEDS: INSULIN SLIDING SCALE (NOVOLOG) 1 VIAL SQ SCH (07:02)
[2018-10-25 07:08] VITALS: BP 109/77; PULSE 85; TEMP 98
[2018-10-25] MEDS: DOCUSATE SODIUM 100 MG CAPSULE (FP) PO SCH (09:01)
[2018-10-25] MEDS: DULoxetine HCL 20 MG CAPSULE.DR (FP) PO SCH (09:02)
[2018-10-25] MEDS: PRENATAL VITAMINS W/ FOLIC ACID TABLET (FP) PO SCH (09:02)
[2018-10-25] MEDS: HALOPERIDOL 5 MG TABLET (FP) PO SCH (09:02)
--- NOTE | 2018-10-25 10:04 | PN ---
[facility] Progress Note Note: REHAB DISCHARGE NOTES: PT COMPLETED REHAB AND DISCHARGED TODAY. ALERT O X 3. PT REPORTS SHE HAS A PCP DR. MOLINA AND HAS BEEN REFERRED BACK TO [facility] CD [facility]. REPORTS SH HAS A PCP DR. MOLINA AT [address] [facility]. PT REPORTS SHE HAS OWN MEDS AND DOES NOT NEED COURTESY RX. Vital Signs - 24 hr 10/25/18 10/25/18 10/25/18 00:30 03:30 07:07 Temperature 98.0 F Pulse Rate 85 Respiratory 18 18 18 Rate Blood Pressure 109/77 Laboratory Tests 10/11/18 10/11/18 10/12/18 16:38 23:00 06:45 WBC RBC Hgb Hct MCV MCH MCHC RDW Plt Count MPV Sodium Potassium Chloride Carbon Dioxide Anion Gap BUN Creatinine Creat Clearance w eGFR POC Glucometer 188 147 Random Glucose Calcium Total Bilirubin AST ALT Alkaline Phosphatase Total Protein Albumin Urine Color Dkyellow Urine Appearance Cloudy Urine pH 5.0 Ur Specific [place] 1.036 H Urine Protein 2+ H Urine Glucose (UA) 3+ H Urine Ketones Trace H Urine Blood Negative Urine Nitrite Negative Urine Bilirubin Negative Urine Urobilinogen 2.0 H Ur Leukocyte Esterase 2+ H Urine WBC (Auto) 20 Urine RBC (Auto) 3 Ur Epithelial Cells Moderate Hyaline Casts 32 Urine Mucus Many Valproic Acid RPR Titer HIV 1&2 Antibody Screen HIV P24 Antigen 10/12/18 10/12/18 10/12/18 10:20 10:20 10:20 WBC 8.0 RBC 4.31 Hgb 12.8 Hct 37.4 MCV 86.7 MCH 29.6 MCHC 34.2 RDW 16.8 H Plt Count 280 MPV 9.2 Sodium 139 Potassium 4.7 Chloride 107 Carbon Dioxide 26 Anion Gap 6 L BUN 10 Creatinine 0.7 Creat Clearance w eGFR > 60 POC Glucometer Random Glucose 146 H Calcium 8.8 Total Bilirubin 0.2 AST 6 L ALT 17 Alkaline Phosphatase 63 Total Protein 7.1 Albumin 3.5 Urine Color Urine Appearance Urine pH Ur Specific [place] Urine Protein Urine Glucose (UA) Urine Ketones Urine Blood Urine Nitrite Urine Bilirubin Urine Urobilinogen Ur Leukocyte Esterase Urine WBC (Auto) Urine RBC (Auto) Ur Epithelial Cells Hyaline Casts Urine Mucus Valproic Acid RPR Titer Nonreactive HIV 1&2 Antibody Screen HIV P24 Antigen 01/10/12/18 10/12/18 10:20 11:20 17:10 WBC RBC Hgb Hct MCV MCH MCHC RDW Plt Count MPV Sodium Potassium Chloride Carbon Dioxide Anion Gap BUN Creatinine Creat Clearance w eGFR POC Glucometer 109 121 Random Glucose Calcium Total Bilirubin AST ALT Alkaline Phosphatase Total Protein Albumin Urine Color Urine Appearance Urine pH Ur Specific [place] Urine Protein Urine Glucose (UA) Urine Ketones Urine Blood Urine Nitrite Urine Bilirubin Urine Urobilinogen Ur Leukocyte Esterase Urine WBC (Auto) Urine RBC (Auto) Ur Epithelial Cells Hyaline Casts Urine Mucus Valproic Acid RPR Titer HIV 1&2 Antibody Screen Negative HIV P24 Antigen Negative 10/13/18 10/13/18 10/13/18 05:50 07:23 11:20 WBC RBC Hgb Hct MCV MCH MCHC RDW Plt Count MPV Sodium Potassium Chloride Carbon Dioxide Anion Gap BUN Creatinine Creat Clearance w eGFR POC Glucometer 145 100 Random Glucose Calcium Total Bilirubin AST ALT Alkaline Phosphatase Total Protein Albumin Urine Color Urine Appearance Urine pH Ur Specific [place] Urine Protein Urine Glucose (UA) Urine Ketones Urine Blood Urine Nitrite Urine Bilirubin Urine Urobilinogen Ur Leukocyte Esterase Urine WBC (Auto) Urine RBC (Auto) Ur Epithelial Cells Hyaline Casts Urine Mucus Valproic Acid 31.5 L RPR Titer HIV 1&2 Antibody Screen HIV P24 Antigen 10/13/18 10/14/18 10/14/18 16:29 06:25 11:44 WBC RBC Hgb Hct MCV MCH MCHC RDW Plt Count MPV Sodium Potassium Chloride Carbon Dioxide Anion Gap BUN Creatinine Creat Clearance w eGFR POC Glucometer 110 141 117 Random Glucose Calcium Total Bilirubin AST ALT Alkaline Phosphatase Total Protein Albumin Urine Color Urine Appearance Urine pH Ur Specific [place] Urine Protein Urine Glucose (UA) Urine Ketones Urine Blood Urine Nitrite Urine Bilirubin Urine Urobilinogen Ur Leukocyte Esterase Urine WBC (Auto) Urine RBC (Auto) Ur Epithelial Cells Hyaline Casts Urine Mucus Valproic Acid RPR Titer HIV 1&2 Antibody Screen HIV P24 Antigen 10/14/18 10/15/18 10/15/18 16:31 06:55 16:50 WBC RBC Hgb Hct MCV MCH MCHC RDW Plt Count MPV Sodium Potassium Chloride Carbon Dioxide Anion Gap BUN Creatinine Creat Clearance w eGFR POC Glucometer 125 140 150 Random Glucose Calcium Total Bilirubin AST ALT Alkaline Phosphatase Total Protein Albumin Urine Color Urine Appearance Urine pH Ur Specific [place] Urine Protein Urine Glucose (UA) Urine Ketones Urine Blood Urine Nitrite Urine Bilirubin Urine Urobilinogen Ur Leukocyte Esterase Urine WBC (Auto) Urine RBC (Auto) Ur Epithelial Cells Hyaline Casts Urine Mucus Valproic Acid RPR Titer HIV 1&2 Antibody Screen HIV P24 Antigen 10/16/18 10/16/18 10/17/18 06:19 16:48 06:52 WBC RBC Hgb Hct MCV MCH MCHC RDW Plt Count MPV Sodium Potassium Chloride Carbon Dioxide Anion Gap BUN Creatinine Creat Clearance w eGFR POC Glucometer 147 182 149 Random Glucose Calcium Total Bilirubin AST ALT Alkaline Phosphatase Total Protein Albumin Urine Color Urine Appearance Urine pH Ur Specific [place] Urine Protein Urine Glucose (UA) Urine Ketones Urine Blood Urine Nitrite Urine Bilirubin Urine Urobilinogen Ur Leukocyte Esterase Urine WBC (Auto) Urine RBC (Auto) Ur Epithelial Cells Hyaline Casts Urine Mucus Valproic Acid RPR Titer HIV 1&2 Antibody Screen HIV P24 Antigen 10/17/18 10/18/18 10/18/18 16:44 06:44 16:58 WBC RBC Hgb Hct MCV MCH MCHC RDW Plt Count MPV Sodium Potassium Chloride Carbon Dioxide Anion Gap BUN Creatinine Creat Clearance w eGFR POC Glucometer 127 130 136 Random Glucose Calcium Total Bilirubin AST ALT Alkaline Phosphatase Total Protein Albumin Urine Color Urine Appearance Urine pH Ur Specific [place] Urine Protein Urine Glucose (UA) Urine Ketones Urine Blood Urine Nitrite Urine Bilirubin Urine Urobilinogen Ur Leukocyte Esterase Urine WBC (Auto) Urine RBC (Auto) Ur Epithelial Cells Hyaline Casts Urine Mucus Valproic Acid RPR Titer HIV 1&2 Antibody Screen HIV P24 Antigen 10/19/18 10/19/18 10/19/18 07:16 16:27 17:22 WBC RBC Hgb Hct MCV MCH MCHC RDW Plt Count MPV Sodium Potassium Chloride Carbon Dioxide Anion Gap BUN Creatinine Creat Clearance w eGFR POC Glucometer 148 84 175 Random Glucose Calcium Total Bilirubin AST ALT Alkaline Phosphatase Total Protein Albumin Urine Color Urine Appearance Urine pH Ur Specific [place] Urine Protein Urine Glucose (UA) Urine Ketones Urine Blood Urine Nitrite Urine Bilirubin Urine Urobilinogen Ur Leukocyte Esterase Urine WBC (Auto) Urine RBC (Auto) Ur Epithelial Cells Hyaline Casts Urine Mucus Valproic Acid RPR Titer HIV 1&2 Antibody Screen HIV P24 Antigen 10/20/18 10/20/18 10/21/18 07:08 17:07 07:08 WBC RBC Hgb Hct MCV MCH MCHC RDW Plt Count MPV Sodium Potassium Chloride Carbon Dioxide Anion Gap BUN Creatinine Creat Clearance w eGFR POC Glucometer 136 94 134 Random Glucose Calcium Total Bilirubin AST ALT Alkaline Phosphatase Total Protein Albumin Urine Color Urine Appearance Urine pH Ur Specific [place] Urine Protein Urine Glucose (UA) Urine Ketones Urine Blood Urine Nitrite Urine Bilirubin Urine Urobilinogen Ur Leukocyte Esterase Urine WBC (Auto) Urine RBC (Auto) Ur Epithelial Cells Hyaline Casts Urine Mucus Valproic Acid RPR Titer HIV 1&2 Antibody Screen HIV P24 Antigen 10/21/18 10/22/18 10/22/18 16:59 06:53 17:04 WBC RBC Hgb Hct MCV MCH MCHC RDW Plt Count MPV Sodium Potassium Chloride Carbon Dioxide Anion Gap BUN Creatinine Creat Clearance w eGFR POC Glucometer 96 127 95 Random Glucose Calcium Total Bilirubin AST ALT Alkaline Phosphatase Total Protein Albumin Urine Color Urine Appearance Urine pH Ur Specific [place] Urine Protein Urine Glucose (UA) Urine Ketones Urine Blood Urine Nitrite Urine Bilirubin Urine Urobilinogen Ur Leukocyte Esterase Urine WBC (Auto) Urine RBC (Auto) Ur Epithelial Cells Hyaline Casts Urine Mucus Valproic Acid RPR Titer HIV 1&2 Antibody Screen HIV P24 Antigen 10/23/18 10/24/18 10/24/18 06:54 07:20 17:04 WBC RBC Hgb Hct MCV MCH MCHC RDW Plt Count MPV Sodium Potassium Chloride Carbon Dioxide Anion Gap BUN Creatinine Creat Clearance w eGFR POC Glucometer 123 138 195 Random Glucose Calcium Total Bilirubin AST ALT Alkaline Phosphatase Total Protein Albumin Urine Color Urine Appearance Urine pH Ur Specific [place] Urine Protein Urine Glucose (UA) Urine Ketones Urine Blood Urine Nitrite Urine Bilirubin Urine Urobilinogen Ur Leukocyte Esterase Urine WBC (Auto) Urine RBC (Auto) Ur Epithelial Cells Hyaline Casts Urine Mucus Valproic Acid RPR Titer HIV 1&2 Antibody Screen HIV P24 Antigen 10/25/18 06:59 WBC RBC Hgb Hct MCV MCH MCHC RDW Plt Count MPV Sodium Potassium Chloride Carbon Dioxide Anion Gap BUN Creatinine Creat Clearance w eGFR POC Glucometer 123 Random Glucose Calcium Total Bilirubin AST ALT Alkaline Phosphatase Total Protein Albumin Urine Color Urine Appearance Urine pH Ur Specific [place] Urine Protein Urine Glucose (UA) Urine Ketones Urine Blood Urine Nitrite Urine Bilirubin Urine Urobilinogen Ur Leukocyte Esterase Urine WBC (Auto) Urine RBC (Auto) Ur Epithelial Cells Hyaline Casts Urine Mucus Valproic Acid RPR Titer HIV 1&2 Antibody Screen HIV P24 Antigen NAD MEDICALLY STABLE PLAN;FOLLOW UP WITH [facility] AFTER[facility] AND PCP FOR MEDICAL MANAGEMENT RECOMMENDED.
== END 2018-10-25 09:04 | disposition home or self-care (01) | DRG 895 ==
LOC: YASAS 13:18 → Y3E 17:03
PROVIDERS: ADMIT Psychiatry & Neurology Psychiatry; ATTEND Psychiatry & Neurology Psychiatry
PROC: HZ43ZZZ Group Counseling for Substance Abuse Treatment, 12-Step (ICD-10-PCS; principal; 2018-10-11)
DX: F12.20 Cannabis dependence, uncomplicated (principal); F14.90 Cocaine use, unspecified, uncomplicated; F16.90 Hallucinogen use, unspecified, uncomplicated; F20.9 Schizophrenia, unspecified; F19.24 Other psychoactive substance dependence with psychoactive substance-induced mood disorder; E11.9 Type 2 diabetes mellitus without complications; E66.9 Obesity, unspecified; Z68.38 Body mass index [BMI] 38.0-38.9, adult; Z91.5 Personal history of self-harm
CPT/HCPCS: 36415; 80053; 80164; 81003; 81015; 82962; 85027; 86593; 87389; 93005; 93010; J0735

== ENCOUNTER 2019-01-02 10:41 | Inpatient (IN) | payer OTHER ==
[2019-01-02 11:52] VITALS: BMI 37.3
--- NOTE | 2019-01-02 14:02 | HP ---
CIWA Score - Admission Criteria [facility] Guidelines: Admission for Medically Managed Detox: Requires at least one of the followin. CIWA greater than 12 2. Seizures within the past 24 hours 3. Delirium tremens within the past 24 hours 4. Hallucinations within the past 24 hours 5. Acute intervention needed for co occurring medical disorder 6. Acute intervention needed for co occurring psychiatric disorder 7. Severe withdrawal that cannot be handled at a lower level of care (continued vomiting, continued diarrhea, abnormal vital signs) requiring intravenous medication and/or fluids 8. Admission ROS [facility] - HPI Chief Complaint: I relapsed right after the first rehab and now I need to do this again. Allergies/Adverse Reactions: Allergies Allergy/AdvReac Type Severity Reaction Status Date / Time No Known Allergies Allergy Verified 01/02/19 11:19 History of Present Illness: pt is a 38yrold female with a history of K2 dependence (all other chemical dependence is negative); seeking rehab for treatment. Exam Limitations: No Limitations - Ebola screening Have you traveled outside of the country in the last 21 days: No Have you had contact with anyone from an Ebola affected area: No Have you been sick,other than usual withdrawal symptoms: No Do you have a fever: No - Review of Systems Constitutional: No Symptoms Reported EENT: reports: No Symptoms Reported Respiratory: reports: No Symptoms reported Cardiac: reports: No Symptoms Reported GI: reports: No Symptoms Reported : reports: No Symptoms Reported Musculoskeletal: reports: No Symptoms Reported Integumentary: reports: No Symptoms Reported Neuro: reports: No Symptoms reported Endocrine: reports: No Symptoms Reported Hematology: reports: No Symptoms Reported Psychiatric: reports: Judgement Intact, Mood/Affect Appropiate, Orientated x3, Agitated, Anxious Other Systems: Reviewed and Negative Patient History - Patient Medical History Hx Anemia: No Hx Asthma: No Hx Chronic Obstructive Pulmonary Disease (COPD): No Hx Cancer: No Hx Cardiac Disorders: No Hx Congestive Heart Failure: No Hx Hypertension: No Hx Hypercholesterolemia: No Hx Pacemaker: No HX Cerebrovascular Accident: No Hx Seizures: No Hx Diabetes: Yes (glypidside/jamunet) Hx Gastrointestinal Disorders: No Hx Liver Disease: No Hx Genitourinary Disorders: No Hx Sexually Transmitted Disorders: No Hx Renal Disease (ESRD): No Hx Thyroid Disease: No Hx Human Immunodeficiency Virus (HIV): No (pt denies) Hx Hepatitis C: No (pt denies) Hx Depression: Yes Hx Suicide Attempt: Yes (Pt had an attempt at age 22 yrs old./denies any S/H ideations today) Hx Bipolar Disorder: No Hx Schizophrenia: Yes - Patient Surgical History Past Surgical History: Yes Hx Orthopedic Surgery: Yes (ankle surgery) Hx Hysterectomy: No - PPD History Previous Implant?: Yes Implanted On [facility] Admission?: Yes Date: 10/13/18 Results: neg PPD to be Administered?: No - Reproductive History Patient is a Female of Child Bearing Age (11 -55 yrs old): Yes LMP comment: on testoseron Patient : No - Smoking Cessation Smoking history: Current every day smoker Have you smoked in the past 12 months: Yes Aproximately how many cigarettes per day: 10 Hx Chewing Tobacco Use: Yes Initiated information on smoking cessation: Yes 'Breaking Loose' booklet given: 01/02/19 - Substance & Tx. History Hx Alcohol Use: Yes Hx Substance Use: No Substance Use Type: Marijuana Hx Substance Use Treatment: Yes (last rehab [facility] 09/2018) - Substances abused K2/Spice Substance route: Smoking Frequency: Daily Amount used: $40.00 Age of first use: 33 Date of last use: 01/02/19 Family Disease History - Family Disease History Family Disease History: Other: Father (lives [place]), Mother (lives in [place]) Admission Physical Exam S - Vital Signs Vital Signs: Vital Signs - 24 hr 01/02/19 11:44 Temperature 97.1 F L Pulse Rate 88 Respiratory 16 Rate Blood Pressure 115/67 - Physical General Appearance: Yes: No Apparent Distress, Appropriately Dressed, Obese, Anxious HEENTM: Yes: Hearing grossly Normal, Normal Voice Respiratory: Yes: Lungs Clear, Normal Breath Sounds, No Respiratory Distress Neck: Yes: No masses,lesions,Nodules Breast: Yes: Within Normal Limits Cardiology: Yes: Regular Rhythm, Regular Rate, S1, S2 Abdominal: Yes: Normal Bowel Sounds, Non Tender, Soft Genitourinary: Yes: Within Normal Limits Back: Yes: Normal Inspection Musculoskeletal: Yes: full range of Motion, Gait Steady Extremities: Yes: Normal Capillary Refill, Non-Tender Neurological: Yes: Fully Oriented, Alert, Normal Response Integumentary: Yes: Normal Color Lymphatic: Yes: Within Normal Limits - Diagnostic (1) Schizo-affective schizophrenia Current Visit: No Status: Acute (2) Substance induced mood disorder Current Visit: No Status: Acute Comment: . (3) Diabetes Current Visit: Yes Status: Chronic Qualifiers: Diabetes mellitus type: type 1 Diabetes mellitus complication status: without complication Qualified Code(s): E10.9 - Type 1 diabetes mellitus without complications (4) Schizophrenia Current Visit: Yes Status: Chronic Qualifiers: Schizophrenia type: unspecified Qualified Code(s): F20.9 - Schizophrenia, unspecified Comment: . (5) Synthetic cannabinoid dependence Current Visit: Yes Status: Chronic Cleared for Admission S - Detox or Rehab [facility] Level of Care: Medically Managed Claeared for Rehab Admission: Yes Breathalyzer - Breathalyzer Breathalyzer: 0 POC Urine test - Test device test lot number: [id number] Expiration date: 05/18/20 - Control test control: Yes - Result Urine Test Results: Negative - NO line present Urine Drug Screen - Test Device Lot number: [id number] Expiration date: 08/17/20 - Control Is test valid?: Yes - Results Drug screen NEGATIVE: Yes Inpatient Rehab Admission - Rehab Decision to Admit Inpatient rehab admission?: Yes - Initial Determination Are CD services needed?: Yes Free of communicable disease: Yes Not in need of hospitalization: Yes - Rehab Admission Criteria Previous failed treatment: Yes Poor recovery environment: Yes Comorbidities: Yes Lacks judgement: Yes Patient is meeting Inpatient Rehab admission criteria:: Yes
[2019-01-02] MEDS ORDERED: guaiFENesin 200 MG/10 ML 10 ML UNIT-DOSE CUPS PO PRN (14:15)
[2019-01-02] MEDS ORDERED: MAGNESIUM HYDROX 2400MG/30ML ORAL SUSPENSION 30 ML CUP PO PRN (14:15)
[2019-01-02] MEDS ORDERED: MAGNESIUM CITRATE 300 ML BOTTLE PO PRN (14:15)
[2019-01-02] MEDS ORDERED: P-EPHED 60MG/TRIPROLIDI 2.5MG TABLET PO PRN (14:15)
[2019-01-02] MEDS ORDERED: hydrOXYzine PAMOATE 50 MG CAPSULE (FP) PO PRN (14:15)
[2019-01-02] MEDS ORDERED: MAG HYDROX/AL HYDROX/SIMETH 30 ML UNIT-DOSE CUP PO PRN (14:15)
[2019-01-02] MEDS ORDERED: NICOTINE POLACRILEX 4 MG GUM BUC PRN (14:15)
[2019-01-02] MEDS ORDERED: IBUPROFEN 400 MG TABLET (FP) PO PRN (14:15)
[2019-01-02] MEDS ORDERED: ACETAMINOPHEN 325 MG TABLET (FP) PO PRN (14:15)
[2019-01-02] MEDS ORDERED: LOPERAMIDE HCL 2 MG CAPSULE PO PRN (14:15)
[2019-01-02] MEDS ORDERED: MENTHOL/PHENOL 1 EACH UD MM PRN (14:15)
[2019-01-02 15:02] VITALS: TEMP 97.8
[2019-01-02 16:12] LABS: HEMATOCRIT 39.7 % (32.4-45.2); HEMOGLOBIN 13.2 GM/dL (10.7-15.3); MCHC 33.3 g/dl (32.0-36.0); MEAN CELL VOLUME 87.1 fl (80-96); PLATELET COUNT 241 K/MM3 (134-434); RBC 4.55 M/mm3 (3.60-5.2); RDW 16.6 % (11.6-15.6); WHITE BLOOD COUNT 9.9 K/mm3 (4.0-10.0)
[2019-01-02] MEDS ORDERED: PT OWN MED DRAWER 7, Y5N ONE (16:16)
[2019-01-02 16:21] LABS: EPI CELLS 4.4 /HPF (0-5/HPF); PH,URINE 6.5 (5.0-8.0); URINE APPEARANCE CLEAR; URINE BACTERIA 190.4 /hpf (NEGATIVE); URINE BILIRUBIN NEGATIVE (NEGATIVE); URINE CASTS 8 /lpf (0-8); URINE COLOR YELLOW; URINE GLUCOSE (UA) NEGATIVE (NEGATIVE); URINE KETONE TRACE (NEGATIVE); URINE LEUK ESTERASE TRACE (NEGATIVE); URINE NITRITE NEGATIVE (NEGATIVE); URINE PROTEIN NEGATIVE (NEGATIVE); URINE UROBILINOGEN 0.2 mg/dL (0.2-1.0); URINE WBC 6 /hpf (0-5)
[2019-01-02 16:25] LABS: ALBUMIN 3.6 g/dl (3.4-5.0); ALK PHOS 67 U/L (45-117); ANION GAP 5 MMOL/L (8-16); BILIRUBIN,TOTAL 0.4 mg/dL (0.2-1); BLOOD UREA NITROGEN 9 mg/dL (7-18); CALCIUM 9.3 mg/dL (8.5-10.1); CHLORIDE 104 mmol/L (98-107); CO2 27 mmol/L (21-32); CREATININE 0.6 mg/dL (0.55-1.3); GLUCOSE,RANDOM 105 mg/dL (74-106); POTASSIUM 4.1 mmol/L (3.5-5.1); SGOT/AST 9 U/L (15-37); SGPT/ALT 21 U/L (13-61); SODIUM 136 mmol/L (136-145); TOT PROT 7.6 g/dl (6.4-8.2)
[2019-01-02 16:37] LABS: URINE RBC 4.6 /hpf (0-4)
[2019-01-02] MEDS ORDERED: sitaGLIPtin PHOSPHATE 50 MG TABLET PO ONE (16:45)
[2019-01-02] MEDS ORDERED: metFORMIN HCL 500 MG TABLET (FP) PO ONE (16:45)
[2019-01-02] MEDS: DOCUSATE SODIUM 100 MG CAPSULE (FP) PO SCH (21:44)
[2019-01-02] MEDS ORDERED: THIAMINE HCL 100 MG TABLET (FP) PO SCH (22:00)
[2019-01-02] MEDS ORDERED: PATIENT'S OWN MEDICATION (NON-FORMULARY) (Sitagliptin Phos/Metformin Hcl [Janumet Xr 50-1, PO SCH (22:00)
[2019-01-02] MEDS ORDERED: MELATONIN 5 MG TABLETS PO PRN (22:00)
[2019-01-02] MEDS ORDERED: PRAZOSIN HCL 1 MG CAPSULE PO SCH (22:00)
[2019-01-03] MEDS ORDERED: PT OWN MED DRAWER 7, Y5N ONE ×3 (00:59→10:05)
[2019-01-03] MEDS ORDERED: metFORMIN HCL 500 MG TABLET (FP) PO SCH (07:00)
[2019-01-03] MEDS ORDERED: sitaGLIPtin PHOSPHATE 50 MG TABLET PO SCH (07:00)
[2019-01-03] MEDS ORDERED: glipiZIDE-XL 5 MG TAB.ER.24 PO SCH (07:00)
[2019-01-03 07:06] VITALS: BP 129/89; PULSE 93
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
[2019-01-03] MEDS: DOCUSATE SODIUM 100 MG CAPSULE (FP) PO SCH (09:15)
[2019-01-03] MEDS ORDERED: BISMUTH SUBSALICYLATE 262 MG/15 ML BTL PO PRN (09:35)
[2019-01-03] MEDS ORDERED: TRIMETHOBENZAMIDE HCL 300 MG CAPSULE PO PRN (09:39)
[2019-01-03] MEDS ORDERED: PRENATAL VITAMINS W/ FOLIC ACID TABLET (FP) PO SCH (10:00)
[2019-01-03] MEDS ORDERED: HALOPERIDOL 5 MG TABLET (FP) PO SCH ×2 (10:00→22:00)
[2019-01-03] MEDS ORDERED: NALTREXONE HCL 50 MG TABLET PO SCH (10:00)
--- NOTE | 2019-01-03 11:09 | PN ---
[facility] Progress Note (SOAP) Subjective: Patient is leaving, states she feels like using and is not willing to accept treatment for symptoms of withdrawal. Objective: 01/03/19 11:05 A+O x3, no neurological deficits, lungs clear, heart rate regular. Medically stable for discharge. CBC, BMP 01/02/19 14:15 01/02/19 14:15 Vital Signs (72 hours) 01/02/19 01/02/19 01/03/19 11:44 15:01 00:30 Temperature 97.1 F L 97.8 F Pulse Rate 88 90 Respiratory 16 18 18 Rate Blood Pressure 115/67 122/77 01/03/19 01/03/19 03:30 07:05 Temperature 97.8 F Pulse Rate 93 H Respiratory 18 18 Rate Blood Pressure 129/89 01/03/19 11:10 Assessment: 01/03/19 11:10 Diagnoses: Substance Abuse disorder, chronic Schizoaffective disorder, chronic Synthetic cannaboid dependance, chronic Diabetes, type 2 Plan: Going to aftercare at [facility], Dr. [place]astume at [place] [facility] for medical care. Client states she has all her medications and does not need prescriptions. Refused treatment for symptoms of withdrawal.
[2019-01-03] MEDS ORDERED: DIVALPROEX SODIUM 500 MG TABLET E.C. PO SCH (22:00)
[2019-01-04] MEDS ORDERED: DIVALPROEX SODIUM 500 MG TABLET E.C. PO SCH (07:00)
[2019-01-04] MEDS ORDERED: PRAZOSIN HCL 1 MG CAPSULE PO SCH (22:00)
[2019-01-09] MEDS ORDERED: ERGOCALCIFEROL (VITAMIN D2) 50,000 UNIT CAPSULE (FP) PO SCH (10:00)
== END 2019-01-03 11:16 | disposition left against medical advice (07) | DRG 894 ==
LOC: YASAS 10:41 → Y3E 14:16
PROVIDERS: ADMIT Neuromusculoskeletal Medicine & OMM; ATTEND Neuromusculoskeletal Medicine & OMM
PROC: HZ42ZZZ Group Counseling for Substance Abuse Treatment, Cognitive-Behavioral (ICD-10-PCS; principal; 2019-01-02)
DX: F12.20 Cannabis dependence, uncomplicated (principal); F17.210 Nicotine dependence, cigarettes, uncomplicated; F25.9 Schizoaffective disorder, unspecified; F19.24 Other psychoactive substance dependence with psychoactive substance-induced mood disorder; E10.9 Type 1 diabetes mellitus without complications; E66.9 Obesity, unspecified; Z68.37 Body mass index [BMI] 37.0-37.9, adult; Z79.84 Long term (current) use of oral hypoglycemic drugs; Z91.5 Personal history of self-harm
CPT/HCPCS: 36415; 80053; 81003; 82962; 85027; 86593

== ENCOUNTER 2019-02-20 18:42 | Inpatient (IN) | payer OTHER ==
[2019-02-20 19:11] VITALS: BMI 35.7
--- NOTE | 2019-02-20 20:32 | HP ---
CIWA Score Nausea/Vomitin-No Nausea/No Vomiting Muscle Tremors: 1-None Visible, but [place] Anxiety: 1-Mildly Anxious Agitation: 1-Slight > Activity Paroxysmal Sweats: No Perspiration Orientation: 0-Oriented Tacttile Disturbances: 0-None Auditory Disturbances: 0-None Visual Disturbances: 0-None Headache: 0-None Present CIWA-Ar Total Score: 3 - Admission Criteria OASAS Guidelines: Admission for Medically Managed Detox: Requires at least one of the followin. CIWA greater than 12 2. Seizures within the past 24 hours 3. Delirium tremens within the past 24 hours 4. Hallucinations within the past 24 hours 5. Acute intervention needed for co occurring medical disorder 6. Acute intervention needed for co occurring psychiatric disorder 7. Severe withdrawal that cannot be handled at a lower level of care (continued vomiting, continued diarrhea, abnormal vital signs) requiring intravenous medication and/or fluids 8. Admission ROS [facility] Chief Complaint: SEEKING REHAB FOR K2 DEPENDENCE AND RECENT ALCOHOL ABUSE Allergies/Adverse Reactions: Allergies Allergy/AdvReac Type Severity Reaction Status Date / Time No Known Allergies Allergy Verified 02/20/19 18:55 History of Present Illness: 38 Y.O. FEMALE WITH ALCOHOLISM AND K2 ABUSE HERE FOR REHAB. CLIENT WAS REFERRED BY HER RESIDENTIAL PROGRAM GARY PAYTON. SHE IS KNOWN TO THIS PROGRAM. LAST HERE 6 WEEKS AGO. REPORTS K2 USE DAILY AND INTERMITTENT ALCOHOL ABUSE. SHE REPORTS NO ALCOHOL USE IN 3 YEARS HAVING HER FIRST DRINK LAST NIGHT. SHE STATES SHE HAD A SIP WINE AND 1 WINE COOLER. SHE REPORTS A HX/ O SEIZURES LAST BEING 2 YEARS UNRELATED TO HER DRUG ALCOHOL USE. DENIES SI/HI/ AVH, BLACK OUTS. REPORTS LONGEST CLEAN TIME 3 YEARS. DOMICILED, DISABLED, DENIES LEGALS Exam Limitations: No Limitations - Ebola screening Have you traveled outside of the country in the last 21 days: No (N) Have you had contact with anyone from an Ebola affected area: No Do you have a fever: No - Review of Systems Constitutional: No Symptoms Reported EENT: reports: Dental Problems (MISSING TEETH) Respiratory: reports: No Symptoms reported Cardiac: reports: No Symptoms Reported GI: reports: No Symptoms Reported : reports: No Symptoms Reported Musculoskeletal: reports: No Symptoms Reported Integumentary: reports: No Symptoms Reported Neuro: reports: Seizure (LAST EPISODE 2 YEARS AGO) Endocrine: reports: Other (HX/O DM) Hematology: reports: No Symptoms Reported Psychiatric: reports: Orientated x3, Anxious, Depressed (DENIES SI/HI) Other Systems: Reviewed and Negative Patient History - Patient Medical History Hx Anemia: No Hx Asthma: No Hx Chronic Obstructive Pulmonary Disease (COPD): No Hx Cancer: No Hx Cardiac Disorders: No Hx Congestive Heart Failure: No Hx Hypertension: No Hx Hypercholesterolemia: No Hx Pacemaker: No HX Cerebrovascular Accident: No Hx Seizures: No Hx Diabetes: Yes (glypidside/jamunet) Hx Gastrointestinal Disorders: No Hx Liver Disease: No Hx Genitourinary Disorders: No Hx Sexually Transmitted Disorders: No Hx Renal Disease (ESRD): No Hx Thyroid Disease: No Hx Human Immunodeficiency Virus (HIV): No (pt denies) Hx Hepatitis C: No (pt denies) Hx Depression: Yes Hx Suicide Attempt: Yes (Pt had an attempt at age 22 yrs old./denies any S/H ideations today) Hx Bipolar Disorder: No Hx Schizophrenia: Yes - Patient Surgical History Past Surgical History: Yes Hx Neurologic Surgery: No Hx Cataract Extraction: No Hx Cardiac Surgery: No Hx Lung Surgery: No Hx Breast Surgery: No Hx Breast Biopsy: No Hx Abdominal Surgery: No Hx Appendectomy: No Hx Cholecystectomy: No Hx Genitourinary Surgery: No Hx Section: No Hx Orthopedic Surgery: Yes (ankle surgery) Hx Hysterectomy: No Anesthesia Reaction: No - PPD History Previous Implant?: Yes Documented Results: Negative w/proof Implanted On Prior [facility] Admission?: Yes Date: 10/13/18 Results: neg PPD to be Administered?: No - Reproductive History Patient is a Female of Child Bearing Age (11 -55 yrs old): Yes Last Menstrual Period: 09/02/18 Patient : No (NEG HCG) - Smoking Cessation Smoking history: Current every day smoker Have you smoked in the past 12 months: Yes Aproximately how many cigarettes per day: 10 Cigars Per Day: 0 Hx Chewing Tobacco Use: Yes Initiated information on smoking cessation: No 'Breaking Loose' booklet given: 02/20/19 - Substance & Tx. History Hx Alcohol Use: Yes Hx Substance Use: Yes Substance Use Type: Alcohol, Marijuana (K2) Hx Substance Use Treatment: Yes ([facility]) - Substances abused K2/Spice Substance route: Smoking Frequency: Daily Amount used: 60 dollars Age of first use: 33 Date of last use: 02/20/19 Alcohol Other (specify): WHISKEY Substance route: Oral Frequency: 3-6 times per week Amount used: 1/2 PINT Age of first use: 20 Date of last use: 02/17/16 (DRANK ASIP OF WINE AND 1 BOTTLE OF BLANCHARD COLADA 1 DAY AGO) Family Disease History - Family Disease History Family Disease History: Other: Father (lives [place]), Mother (lives in [place]) Admission Physical Exam [facility] - Vital Signs Vital Signs: Vital Signs - 24 hr 02/20/19 18:54 Temperature 97.6 F Pulse Rate 89 Respiratory 18 Rate Blood Pressure 126/85 - Physical General Appearance: Yes: Tremorous (mildly felt), Anxious HEENTM: Yes: EOMI, Normal ENT Inspection, Normocephalic, Normal Voice, VIC, Other (missing teeth) Respiratory: Yes: Chest Non-Tender, Lungs Clear, Normal Breath Sounds, No Respiratory Distress, No Accessory Muscle Use Neck: Yes: No masses,lesions,Nodules, Supple, Trachea in good position Breast: Yes: Breast Exam Deferred Cardiology: Yes: Regular Rhythm, Regular Rate, S1, S2 Abdominal: Yes: Normal Bowel Sounds, Non Tender, Soft, Protuberent Genitourinary: Yes: Within Normal Limits Back: Yes: Normal Inspection Musculoskeletal: Yes: full range of Motion, Gait Steady Extremities: Yes: Normal Capillary Refill, Normal Range of Motion, Non-Tender, Tremors (mildy felt) Neurological: Yes: Fully Oriented, Alert, Motor Strength 5/5 Integumentary: Yes: Dry, Warm Lymphatic: Yes: Within Normal Limits - Diagnostic (1) Alcohol abuse Current Visit: Yes Status: Chronic (2) History of seizure Current Visit: Yes Status: Suspected (3) Nicotine dependence Current Visit: Yes Status: Chronic Qualifiers: Nicotine product type: cigarettes Substance use status: uncomplicated Qualified Code(s): F17.210 - Nicotine dependence, cigarettes, uncomplicated (4) Substance induced mood disorder Current Visit: Yes Status: Suspected Comment: . (5) Diabetes Current Visit: Yes Status: Chronic Qualifiers: Diabetes mellitus type: type 2 Diabetes mellitus complication status: without complication (6) Schizophrenia Current Visit: Yes Status: Chronic Qualifiers: Schizophrenia type: unspecified Qualified Code(s): F20.9 - Schizophrenia, unspecified Comment: . (7) Synthetic cannabinoid dependence Current Visit: Yes Status: Acute Cleared for Admission [facility] - Detox or Rehab Detox Regimen/Protocol: Not Applicable Claeared for Rehab Admission: Yes Breathalyzer - Breathalyzer Breathalyzer: 0 POC Urine test - Test device test lot number: [id number] Expiration date: 05/18/20 - Control test control: Yes Urine Drug Screen - Test Device Lot number: [id number] Expiration date: 11/15/20 - Control Is test valid?: Yes - Results Drug screen NEGATIVE: Yes Inpatient Rehab Admission - Rehab Decision to Admit Inpatient rehab admission?: Yes - Initial Determination Are CD services needed?: Yes Free of communicable disease: Yes Not in need of hospitalization: Yes - Rehab Admission Criteria Previous failed treatment: Yes Poor recovery environment: Yes Comorbidities: Yes Lacks judgement: No Patient is meeting Inpatient Rehab admission criteria:: Yes
[2019-02-20] MEDS ORDERED: LOPERAMIDE HCL 2 MG CAPSULE PO PRN (20:42)
[2019-02-20] MEDS ORDERED: NICOTINE POLACRILEX 2 MG GUM BC PRN (20:42)
[2019-02-20] MEDS ORDERED: guaiFENesin 200 MG/10 ML 10 ML UNIT-DOSE CUPS PO PRN (20:42)
[2019-02-20] MEDS ORDERED: IBUPROFEN 400 MG TABLET (FP) PO PRN (20:42)
[2019-02-20] MEDS ORDERED: P-EPHED 60MG/TRIPROLIDI 2.5MG TABLET PO PRN (20:42)
[2019-02-20] MEDS ORDERED: MAGNESIUM HYDROX 2400MG/30ML ORAL SUSPENSION 30 ML CUP PO PRN (20:42)
[2019-02-20] MEDS ORDERED: MENTHOL/PHENOL 1 EACH UD MM PRN (20:42)
[2019-02-20] MEDS ORDERED: MAGNESIUM CITRATE 300 ML BOTTLE PO PRN (20:42)
[2019-02-20] MEDS ORDERED: ACETAMINOPHEN 325 MG TABLET (FP) PO PRN (20:42)
[2019-02-20] MEDS ORDERED: hydrOXYzine PAMOATE 50 MG CAPSULE (FP) PO PRN (20:42)
[2019-02-20] MEDS ORDERED: MAG HYDROX/AL HYDROX/SIMETH 30 ML UNIT-DOSE CUP PO PRN (20:42)
[2019-02-20] MEDS: DOCUSATE SODIUM 100 MG CAPSULE (FP) PO SCH (21:50)
[2019-02-20] MEDS ORDERED: THIAMINE HCL 100 MG TABLET (FP) PO SCH (22:00)
[2019-02-20] MEDS ORDERED: MELATONIN 5 MG TABLETS PO PRN (22:00)
[2019-02-21 06:50] VITALS: BP 124/59; PULSE 69; TEMP 98.1
[2019-02-21] MEDS ORDERED: metFORMIN HCL 500 MG TABLET (FP) PO SCH (07:00)
[2019-02-21] MEDS ORDERED: sitaGLIPtin PHOSPHATE 50 MG TABLET PO SCH (07:00)
[2019-02-21] MEDS ORDERED: glipiZIDE-XL 5 MG TAB.ER.24 PO SCH (07:00)
--- NOTE | 2019-02-21 08:47 | PN ---
[facility] Progress Note Note: 38 years old female admitted on 02/21/19 for K2 rehab upon arrived the unit observed patient yelling out loud, pulling his hair, paranoia about "people following me" demands K2 detox incoherent elated mood pacing aggressive toward staff 911 called [phone] call [facility] ER report giving to Dr. Hoffmann
[2019-02-21] MEDS ORDERED: NICOTINE 14 MG/24 HOURS TOPICAL PATCH TD SCH (10:00)
[2019-02-21] MEDS ORDERED: PRENATAL VITAMINS W/ FOLIC ACID TABLET (FP) PO SCH (10:00)
[2019-02-21 10:22] LABS: EPI CELLS 3.3 /HPF (0-5/HPF); HYALINE CASTS 3 /lpf (0-8); URINE APPEARANCE CLEAR; URINE BACTERIA 108.5 /hpf (NEGATIVE); URINE BILIRUBIN NEGATIVE (NEGATIVE); URINE COLOR YELLOW; URINE GLUCOSE (UA) NEGATIVE (NEGATIVE); URINE KETONE NEGATIVE (NEGATIVE); URINE LEUK ESTERASE 1+ (NEGATIVE); URINE NITRITE NEGATIVE (NEGATIVE); URINE PROTEIN NEGATIVE (NEGATIVE); URINE RBC 3 /hpf (0-4); URINE UROBILINOGEN 0.2 mg/dL (0.2-1.0); URINE WBC 8 /hpf (0-5)
[2019-02-21] MEDS: DOCUSATE SODIUM 100 MG CAPSULE (FP) PO SCH (11:43)
--- NOTE | 2019-02-21 15:52 | PN ---
Discharge Disposition - Discharge Dispostion Disposition: TRANSFER ACUTE CARE/OTHER HOSP Condition at time of disposition: Critical Last Admission D/C Date: 02/20/19 Decision to Admit order: No - Referrals - Patient Instructions Printed Discharge Instructions: DI for Alcohol Abuse, DI for Drug Abuse and Drug Addiction - Post Discharge Activity - Transfer to Acute Care Facility Receiving Facility: [facility] Accepting Physician:: [facility] Transfer comment: 02/21/19 15:49 patient presents psychotic episode self harm (pulling hair) auditory hallucination aggressive toward staff severe labile mood case discussed with nursing supervisor abattoir that due to negative urine toxicity patient will be transferred from [facility] to [facility] Labs Lab Results: Laboratory Last Values POC Glucometer 140 UNITS (80-120) 02/21/19 06:28 Urine Color Yellow 02/21/19 07:30 Urine Appearance Clear 02/21/19 07:30 Urine pH 8.0 (5.0-8.0) D 02/21/19 07:30 Ur Specific Ada 1.018 (1.010-1.035) 02/21/19 07:30 Urine Protein Negative (NEGATIVE) 02/21/19 07:30 Urine Glucose (UA) Negative (NEGATIVE) 02/21/19 07:30 Urine Ketones Negative (NEGATIVE) 02/21/19 07:30 Urine Blood Negative (NEGATIVE) 02/21/19 07:30 Urine Nitrite Negative (NEGATIVE) 02/21/19 07:30 Urine Bilirubin Negative (NEGATIVE) 02/21/19 07:30 Urine Urobilinogen 0.2 mg/dL (0.2-1.0) 02/21/19 07:30 Ur Leukocyte Esterase 1+ (NEGATIVE) H 02/21/19 07:30 Urine WBC (Auto) 8 /hpf (0-5) 02/21/19 07:30 Urine RBC (Auto) 3 /hpf (0-4) 02/21/19 07:30 Urine Casts (Auto) 3 /lpf (0-8) 02/21/19 07:30 U Epithel Cells (Auto) 3.3 /HPF (0-5/HPF) 02/21/19 07:30 Urine Bacteria (Auto) 108.5 /hpf (NEGATIVE) 02/21/19 07:30 POC Urine HCG, Qual Negative 02/20/19 19:54 Laboratory Last Values lab noted
== END 2019-02-21 08:55 | disposition short-term general hospital (02) | DRG 897 ==
LOC: YASAS 18:42 → Y3W 20:32
PROVIDERS: ADMIT Neuromusculoskeletal Medicine & OMM; ATTEND Neuromusculoskeletal Medicine & OMM
DX: F19.20 Other psychoactive substance dependence, uncomplicated (principal); F10.10 Alcohol abuse, uncomplicated; F17.210 Nicotine dependence, cigarettes, uncomplicated; F25.0 Schizoaffective disorder, bipolar type; F19.24 Other psychoactive substance dependence with psychoactive substance-induced mood disorder; E11.9 Type 2 diabetes mellitus without complications; Z79.84 Long term (current) use of oral hypoglycemic drugs; Z86.69 Personal history of other diseases of the nervous system and sense organs; Z91.5 Personal history of self-harm
CPT/HCPCS: 81003; 81025; 82962